=== PATIENT | male | born 1940 | race Caucasian/White ===

== ENCOUNTER 2017-09-11 15:12 | Inpatient (IN) | payer MEDICARE, BC ==
[2017-09-07 11:24] LABS: BASOPHILS % (AUTO) 0.2 % (0-1); EOSINOPHILS # (AUTO) 0.6 X10'3 (0-0.9); EOSINOPHILS % (AUTO) 2.7 % (0-6); HEMATOCRIT 38.6 % (42.0-52.0); HEMOGLOBIN 12.9 g/dl (14.0-17.9); LYMPHOCYTES # (AUTO) 12.1 X10'3 (1.1-4.8); LYMPHOCYTES % (AUTO) 58.4 % (21-51); MEAN CORPUSCULAR HEMOGLOBIN 33.4 PG (27.0-31.0); MEAN CORPUSCULAR HGB CONC 33.5 % (33.0-36.5); MEAN CORPUSCULAR VOLUME 99.6 FL (78-98); MEAN PLATELET VOLUME 6.8 FL (7.4-10.4); MONOCYTES # (AUTO) 1.1 X10'3 (0-0.9); MONOCYTES % (AUTO) 5.3 % (2-12); NEUTROPHILS # (AUTO) 6.9 X10'3 (1.8-7.7); NEUTROPHILS % (AUTO) 33.4 % (42-75); PLATELET COUNT 269 X10'3 (140-440); RED BLOOD COUNT 3.87 X10'6 (4.70-6.10); RED CELL DISTRIBUTION WIDTH 14.4 % (11.5-14.5); WHITE BLOOD COUNT 20.7 X10'3 (4.5-11.0)
[2017-09-07 11:31] LABS: PARTIAL THROMBOPLASTIN TIME 27 SECONDS (22-32); PROTHROMBIN TIME 10.2 SECONDS (9.0-12.0)
[2017-09-07 11:34] LABS: ALBUMIN 4.1 G/DL (3.4-5.0); ANION GAP 6 (8-16); BLOOD UREA NITROGEN 13 MG/DL (7-18); CALCIUM 9.3 MG/DL (8.5-10.1); CHLORIDE 99 MMOL/L (99-107); GLUCOSE 106 MG/DL (70-104); POTASSIUM 4.5 MMOL/L (3.5-5.1); SODIUM 133 MMOL/L (135-145); TOTAL CARBON DIOXIDE 28.4 MMOL/L (24-32); eGFR 72 ML/MIN
[2017-09-07 13:25] LABS: BANDS% (MANUAL) 0 % (0-10); BASOPHILS % (MANUAL) 1 % (0-1); EOSINOPHILS % (MANUAL) 7 % (0-6); IMMATURE CELLS 1 % (0-0); MONOCYTES % (MANUAL) 6 % (2-12); NEUTROPHILS % (MANUAL) 27 % (42-75); TOTAL CELLS COUNTED 100
[2017-09-07 13:28] LABS: LYMPHOCYTES % (MANUAL) 21 % (21-51)
[2017-09-07 14:05] LABS: ANISOCYTOSIS FEW; PLATELET ESTIMATE NORMAL
[2017-09-07 14:06] LABS: SMUDGE CELLS 1+
[2017-09-11] VITALS (8 sets, daily range): BP systolic 127–159; BP diastolic 60–86
[~2017-09-11] VITALS: Ht 185.4 cm; Wt 92.9 kg
[~2017-09-11 15:12] MED LIST: ALLO100T PO; AMLO5TAB PO; ASPI81TA52 PO; BUDE10.2 INH; CALC950T2; CHOL200013; CLOP75TA33 PO; IRBE150T51 PO; ROSU20TA PO; TEST75GE TP; TRIA15CR61 TP
[2017-09-11] MEDS ORDERED: LIDOcaine 1% (10mg/ml) 2ml vial ONE (15:20)
[2017-09-11] MEDS ORDERED: LORazepam 0.5 MG tablet PO PRN (15:35)
[2017-09-11] MEDS ORDERED: diphenhydrAMINE 25mg capsule PO PRN (15:35)
[2017-09-11] MEDS: normal saline 1000ml 1,000 ML IV SCH ×2 (16:37→22:25)
[2017-09-11] MEDS ORDERED: iohexol 350MG/ML 100ml bottle IV ONE (18:56)
[2017-09-11] MEDS ORDERED: LIDOcaine 1%/PF (10mg/ml) 5ml vial ONE ×2 (18:56→18:57)
[2017-09-11] MEDS ORDERED: heparin 1,000 UNITS/NS 500ml 500 ML ONE ×3 (18:56→19:58)
[2017-09-11] MEDS ORDERED: iohexol 350 MG/ML 50ML vial IV ONE (18:57)
[2017-09-11] MEDS ORDERED: heparin 1,000unit/ml 10ml vial 10 ML ONE (19:20)
[2017-09-11] MEDS ORDERED: IOHEXOL 350 MG/ML 150 ML injection IV ONE (19:51)
[2017-09-11] MEDS ORDERED: clopidogrel 300mg tablet ONE (20:16)
[2017-09-11] MEDS ORDERED: acetaminophen 325mg tablet PO PRN (21:45)
[2017-09-11] MEDS ORDERED: pseudoephedrine 30mg tablet PO PRN (21:45)
[2017-09-11] MEDS ORDERED: OXAZEpam 15mg capsule PO PRN (21:45)
[2017-09-11] MEDS ORDERED: HYDROcodone/acetaminophen 10/325mg tab PO PRN (21:45)
[2017-09-11] MEDS ORDERED: HYDROcodone/acetaminophen 5mg/325mg tablet PO PRN (21:45)
[2017-09-11] MEDS ORDERED: proCHLORperazine 10 MG/2 ml inj IV PRN (21:45)
[2017-09-11] MEDS ORDERED: hydrALAZINE 20mg/ml inj. IV PRN (21:50)
[2017-09-11] MEDS ORDERED: DOPamine 400mg/D5W 250ml 250 ML IV PRN (21:50)
[2017-09-12 00:30] VITALS: BP 140/66
[2017-09-12 02:00] VITALS: BP 140/60
[2017-09-12 06:00] VITALS: BP 122/58
[2017-09-12] MEDS ORDERED: losartan 50mg tablet PO SCH (08:00)
[2017-09-12] MEDS ORDERED: aspirin 81mg tablet.DR PO SCH (08:00)
[2017-09-12] MEDS ORDERED: clopidogrel 75mg tablet PO SCH (08:00)
[2017-09-12] MEDS ORDERED: allopurinol 300 MG tablet PO SCH (08:00)
[2017-09-12] MEDS ORDERED: atorvastatin 20mg tablet PO SCH (08:00)
[2017-09-12 09:37] VITALS: BP 132/68
[2017-09-13] MEDS ORDERED: fluticasone/vilanterol 200mcg/25mcg inhaler IH SCH (08:00)
== END 2017-09-12 11:00 | disposition home or self-care (01) | DRG 36 ==
LOC: SSTAY O 15:12 → PCU 3S 21:47
PROVIDERS: ADMIT Internal Medicine Interventional Cardiology; ATTEND Internal Medicine Interventional Cardiology
PROC: 037K3DZ Dilation of Right Internal Carotid Artery with Intraluminal Device, Percutaneous Approach (ICD-10-PCS; principal; 2017-09-11)
PROC: B3161ZZ Fluoroscopy of Right Internal Carotid Artery using Low Osmolar Contrast (ICD-10-PCS; 2017-09-11)
DX: I65.21 Occlusion and stenosis of right carotid artery (principal); E78.5 Hyperlipidemia, unspecified; G47.33 Obstructive sleep apnea (adult) (pediatric); I10 Essential (primary) hypertension; I73.9 Peripheral vascular disease, unspecified; Z79.51 Long term (current) use of inhaled steroids; Z79.82 Long term (current) use of aspirin; Z79.899 Other long term (current) drug therapy; Z88.5 Allergy status to narcotic agent
CPT/HCPCS: 36223; 36415; 37215; 80048; 85025; 85610; 85730; A4620; A6257; A6258; C1725; C1760; C1769; C1876; C1884; C1887; J1644; J2001; J3490; J7030; Q0163; Q9967

== ENCOUNTER 2021-11-02 06:43 | Day surgery (SDC) | payer MEDICARE, BC ==
[2021-11-02] VITALS (15 sets, daily range): BP systolic 80–177; BP diastolic 41–81
[~2021-11-02] VITALS: Ht 188 cm; Wt 81.2 kg
[~2021-11-02 06:43] MED LIST changes: -AMLO5TAB PO; -CALC950T2; -CHOL200013; -ROSU20TA PO; +ROSU20TA2 PO; -TEST75GE TP; -TRIA15CR61 TP
[2021-11-02] MEDS ORDERED: normal saline 1000ml 1,000 ML IV SCH (07:05)
[2021-11-02] MEDS ORDERED: IRON (07:27)
[2021-11-02] MEDS ORDERED: AMLO5TAB16 PO (07:27)
[2021-11-02] MEDS ORDERED: IRBE150T24 PO (07:27)
[2021-11-02] MEDS ORDERED: midazolam 1 mg/ML 2ml injection ONE (08:41)
[2021-11-02] MEDS ORDERED: LIDOcaine 1% (10mg/ml) 2ml vial ONE ×2 (08:41→09:28)
[2021-11-02] MEDS ORDERED: fentaNYL/PF 50MCG/1 ML 2ML syringe ONE (08:42)
--- NOTE | 2021-11-02 10:00 | NUR ---
Pt procedure cancelled, to be rescheduled.
--- NOTE | 2021-11-02 11:20 | NUR ---
MD Mayito at bedside with patient and son. Pt was educated on rescheduling procedure as well as events of today.
== END 2021-11-02 11:55 | disposition home or self-care (01) ==
LOC: SSTAY O 06:43
PROVIDERS: ATTEND Radiology Vascular & Interventional Radiology
DX: R91.1 Solitary pulmonary nodule (principal); Z53.8 Procedure and treatment not carried out for other reasons; I95.9 Hypotension, unspecified; I25.10 Atherosclerotic heart disease of native coronary artery without angina pectoris; I10 Essential (primary) hypertension; J44.9 Chronic obstructive pulmonary disease, unspecified; E78.5 Hyperlipidemia, unspecified; G47.30 Sleep apnea, unspecified; D50.0 Iron deficiency anemia secondary to blood loss (chronic); I65.29 Occlusion and stenosis of unspecified carotid artery; Z95.5 Presence of coronary angioplasty implant and graft; Z86.718 Personal history of other venous thrombosis and embolism; Z87.891 Personal history of nicotine dependence; Z79.01 Long term (current) use of anticoagulants; Z79.899 Other long term (current) drug therapy; Z88.5 Allergy status to narcotic agent; Z85.6 Personal history of leukemia; Z82.49 Family history of ischemic heart disease and other diseases of the circulatory system
CPT/HCPCS: 32408; J2250; J3010; J3490; 77012; 99152; 99153